=== PATIENT | female | born 1980 | race Caucasian/White ===

== ENCOUNTER 2019-05-10 00:28 | Emergency (ER) | payer MEDICAID ==
[~2019-05-10] VITALS: Ht 162.6 cm; Wt 88.0 kg
[2019-05-10 01:57] VITALS: BP 125/78
== END 2019-05-10 02:07 | disposition home or self-care (01) ==
LOC: ER 00:28
DX: H66.92 Otitis media, unspecified, left ear (principal)
CPT/HCPCS: 99283

== ENCOUNTER 2019-05-10 08:35 | Emergency (ER) | payer MEDICAID ==
[~2019-05-10] VITALS: Ht 162.6 cm; Wt 88.0 kg
[2019-05-10 11:30] VITALS: BP 122/78
== END 2019-05-10 11:30 | disposition home or self-care (01) ==
LOC: ER 08:35
DX: H60.92 Unspecified otitis externa, left ear (principal); H66.92 Otitis media, unspecified, left ear; H72.92 Unspecified perforation of tympanic membrane, left ear
CPT/HCPCS: 99283